=== PATIENT | female | born 1995 | race Caucasian/White ===

== ENCOUNTER 2017-08-16 19:53 | Emergency (ER) | payer OTHER ==
[2017-08-16 20:00] VITALS: BMI 30.1
[2017-08-16] MEDS ORDERED: Morphine 4 mg/ml ISec IVP STA (20:14)
[2017-08-16] MEDS ORDERED: TDAP Vaccine 0.5 mL Syr IM ONE (20:16)
[2017-08-16 20:35] VITALS: TEMP 98.2; O2SAT 100
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
[2017-08-16 21:24] LABS: ALB/GLOB RATIO 1.3 (1.1-1.8); ALBUMIN 4.5 g/dL (3.0-4.8); ALT/SGPT 46 U/L (7-56); AST/SGOT 28 U/L (14-36); BLOOD UREA NITROGEN 16 mg/dL (7-21); CALCIUM 9.9 mg/dL (8.4-10.5); GFR AFRICAN-AMERICAN > 60; GFR NON-AFRICAN AMERICAN > 60
[2017-08-16 21:26] LABS: BASO # 0.02 K/mm3 (0.0-2.0); BASO % 0.2 % (0.0-3.0); EOS % 0.5 % (1.5-5.0); GRAN # 4.84 (1.4-6.5); GRAN % 54.6 % (50.0-68.0); LYMPH # 3.5 (1.2-3.4); LYMPH % 39.8 % (22.0-35.0); MEAN CELL VOLUME 88.9 fl (80.0-105.0); MEAN CORPUSCULAR HEMOGLOBIN 30.2 pg (25.0-35.0); MEAN PLATELET VOLUME 9.7 fl (7.0-11.0); MONO # 0.4 (0.1-0.6); MONO % 4.9 % (1.0-6.0); RBC 3.97 10^6/uL (3.5-6.1); RED CELL DISTRIBUTION WIDTH 12.4 % (11.5-14.5); WHITE BLOOD COUNT 8.9 10^3/ul (4.5-11.0)
[2017-08-16] MEDS ORDERED: Bacitracin 500 Units/gm Oint Foilpak UD TOP STA (22:55)
[2017-08-16 23:52] VITALS: BP 110/74; PULSE 74; RESP 18
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
--- NOTE | 2017-08-17 11:00 | RAD ---
PROCEDURE: Left Knee Radiographs. HISTORY: Pain. COMPARISON: None. FINDINGS: BONES: Normal. No fracture. JOINTS: Normal. No osteoarthritis. JOINT EFFUSION: None. OTHER FINDINGS: Infrapatellar soft tissue swelling. IMPRESSION: Soft tissue swelling without acute articular or osseous abnormality.
== END 2017-08-16 23:40 | disposition home or self-care (01) ==
LOC: ED 19:53
DX: S01.512A Laceration without foreign body of oral cavity, initial encounter (principal); S80.212A Abrasion, left knee, initial encounter; V03.10XA Pedestrian on foot injured in collision with car, pick-up truck or van in traffic accident, initial encounter; Y92.410 Unspecified street and highway as the place of occurrence of the external cause; R22.0 Localized swelling, mass and lump, head; Z23 Encounter for immunization
CPT/HCPCS: 70450; 70486; 71260; 72125; 73562; 74177; 80053; 85025; 90471; 90715; 96374; 99285; J2270; Q9967